=== PATIENT | female | born 1940 | race Caucasian/White ===

== ENCOUNTER 2016-12-21 12:58 | Outpatient (CLI) | payer MEDICARE, OTHER ==
--- NOTE | 2016-12-23 16:49 | Mammography Report ---
DIGITAL SCREENING MAMMOGRAM: 12/21/2016 CLINICAL INDICATION: A 76-year-old, for screening. COMPARISON: 11/2015, 11/2014, 11/2013, 11/2012, 11/2011, 11/2010, 05/2010, 10/2009, 09/2008. TECHNIQUE: Routine CC and MLO projections were obtained of the breasts. FINDINGS: The breasts demonstrate scattered fibroglandular densities bilaterally. Coarse, typically benign calcifications are present. No suspicious masses, clustered microcalcifications, or regions of architectural distortion are identified. IMPRESSION: BENIGN FINDINGS. RECOMMENDATION: ROUTINE ANNUAL SCREENING UNLESS OTHERWISE CLINICALLY INDICATED. BIRADS CATEGORY 2-BENIGN FINDINGS. STANDARD QUALIFYING STATEMENTS 1. This examination was reviewed with the aid of Computer-Aided Detection (CAD). 2. A negative or benign imaging report should not delay biopsy if clinically suspicious findings are present. Consider surgical consultation if warranted. More than 5% of cancers are not identified by i maging. 3. Dense breasts may obscure an underlying neoplasm. JOB #: [id number] EXT JOB #:[id number]
== END 2016-12-21 12:59 | disposition home or self-care (01) ==
LOC: DI 12:58
PROVIDERS: ATTEND Physician Assistant Medical
DX: Z12.31 Encounter for screening mammogram for malignant neoplasm of breast (principal)
CPT/HCPCS: 77067

== ENCOUNTER 2016-12-28 08:00 | Outpatient (CLI) | payer MEDICARE, OTHER | END 2016-12-28 08:01 | disposition home or self-care (01) | DX: R25.1 Tremor, unspecified (principal) ==

== ENCOUNTER 2017-01-27 17:38 | Emergency (ER) | payer MEDICARE, OTHER ==
[2017-01-27 18:25] LABS: BILIRUBIN,URINE NEGATIVE (NEGATIVE)
[2017-01-27 18:30] LABS: UA CHARGE (STRIP ONLY) YES; UR CULTURE IF IND NOT INDICATED
[2017-01-27 18:34] LABS: BASOPHILS % (AUTO) 0.4 %; EOSINOPHILS # (AUTO) 0.1 10^3/uL (0.0-0.7); EOSINOPHILS % (AUTO) 1.2 %; HCT - HEMATOCRIT 35.9 % (37.0-47.0); HGB - HEMOGLOBIN 12.2 g/dL (12.0-16.0); LYMPHOCYTES # (AUTO) 1.3 10^3/uL (1.5-3.5); LYMPHOCYTES % (AUTO) 13.6 %; MEAN CORPUSCULAR HEMOGLOBIN 31.5 pg (27.0-31.0); MEAN CORPUSCULAR HGB CONC 34.1 g/dL (32.0-36.0); MEAN CORPUSCULAR VOLUME 92.3 fL (81.0-99.0); MEAN PLATELET VOLUME 8.1 fL (7.9-10.8); MONOCYTES # (AUTO) 0.5 10^3/uL (0.0-1.0); MONOCYTES % (AUTO) 5.3 %; NEUTROPHILS # (AUTO) 7.4 10^3/uL (1.5-6.6); NEUTROPHILS % (AUTO) 79.5 %; RED BLOOD COUNT 3.89 10^6/uL (4.20-5.40); RED CELL DISTRIBUTION WIDTH 13.6 % (12.0-15.0); UNCORRECTED WHITE BLOOD COUNT 9.4 x10^3/uL; WHITE BLOOD COUNT 9.4 x10^3/uL (4.8-10.8)
[2017-01-27 18:42] LABS: CALCIUM 9.2 mg/dL (8.5-10.3); POTASSIUM 3.8 mmol/L (3.5-5.0)
--- NOTE | 2017-01-27 20:49 | XRAY Preliminary Report ---
Exam: XR Chest 2 View PA/LAT IMPRESSION: No acute intrathoracic plain film abnormality. [facility] SITE ID: [id number]
--- NOTE | 2017-01-27 20:52 | XRAY Report ---
EXAM: CHEST RADIOGRAPHY EXAM DATE: 01/27/2017 08:18 PM. CLINICAL HISTORY: Chills. COMPARISON: None. TECHNIQUE: 2 views. FINDINGS: Lungs/Pleura: No focal opacities evident. No pleural effusion. No pneumothorax. Normal volumes. Mediastinum: Heart size is normal. There is thoracic aortic calcification. Other: None. IMPRESSION: No acute intrathoracic plain film abnormality. [facility] Referring Provider Line: [phone] SITE ID: [id number]
[2017-01-27 22:07] VITALS: BP 146/68
--- NOTE | 2017-01-27 22:35 | ED Physician Documentation ---
History of Present Illness - Stated complaint Stated Complaint: CHILLS ALL OVER BODY ACHE - Chief complaint Chief Complaint: General - Additonal information Additional information: hx from pt fairly healthy 76 female just returned from a motorcycle trip with friends one other friend was ill with viral URI sx now this pt is ill with shaking chills myalgias fatigue generally weak no specific focal SUAREZ neck pain chest pain, mild suprapubic discomfort has psoriasis and some abrasions on her feet but no infection no actuall recorded fever feels weak all over does take leflunimide so may be slightly immuncocompromised Review of Systems Constitutional: reports: Chills, Myalgias. denies: Fever Ears: denies: Ear pain Throat: denies: Sore throat Cardiac: denies: Chest pain / pressure Respiratory: denies: Dyspnea, Cough GI: reports: Abdominal Pain (mild suprapubic). denies: Nausea, Vomiting : denies: Dysuria Musculoskeletal: denies: Neck pain, Back pain Neurologic: reports: Generalized weakness. 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 - Present Medications Home Medications: Ambulatory Orders Medication Instructions Recorded Confirmed Albuterol 1 puffs PO DAILY 01/27/17 01/27/17 Allerest 1 tab PO DAILY 01/27/17 Benazepril HCl 10 mg PO DAILY 01/27/17 01/27/17 Esomeprazole Magnesium [Nexium] 20 mg PO DAILY 01/27/17 01/27/17 Fluoxetine HCl [Prozac] 20 mg PO DAILY 01/27/17 01/27/17 Fluticasone/Salmeterol [Advair 1 puffs PO DAILY 01/27/17 01/27/17 100-50 Diskus] Leflunomide 20 mg PO DAILY 01/27/17 01/27/17 Levothyroxine Sodium [Synthroid] 75 mcg PO DAILY 01/27/17 01/27/17 Montelukast Sodium [Singulair] 10 mg PO DAILY 01/27/17 01/27/17 Zolpidem Tartrate [Ambien] 10 mg PO DAILY 01/27/17 01/27/17 buPROPion [Wellbutrin Xl] 150 mg PO DAILY 01/27/17 01/27/17 - Allergies Allergies/Adverse Reactions: Allergies Allergy/AdvReac Type Severity Reaction Status Date / Time No Known Drug Allergies Allergy Verified 01/27/17 17:55 - Social History Does the pt smoke?: No Smoking Status: Never smoker Does the pt drink ETOH?: Yes Does the pt have substance abuse?: No PD ED PE NORMAL - Vitals Vital signs reviewed: Yes (afebrile nl HR and BP) - General General: Alert and oriented X 3 - HEENT HEENT: PERRL - Neck Neck: Supple, no meningeal sign - Cardiac Cardiac: RRR - Respiratory Respiratory: No respiratory distress, Clear bilaterally - Abdomen Abdomen: Soft, Other (very mild suprapubic TTP) - Back Back: No CVA TTP, Other (no rash) - Derm Derm: Other (some psoriais and abrasion to soles of feet but no infection) - Extremities Extremities: No deformity - Neuro Neuro: Alert and oriented X 3 Results - Vitals Vitals: Vital Signs - 24 hr 01/27/17 01/27/17 01/27/17 17:53 19:07 22:04 Temperature 37.5 C 37.7 C H Heart Rate 91 85 90 Respiratory 22 22 20 Rate Blood Pressure 178/87 H 155/78 H 146/68 H O2 Saturation 96 96 95 Oxygen O2 Source Room air - Labs Labs: Laboratory Tests 01/27/17 01/27/17 01/27/17 18:10 18:15 18:15 WBC 9.4 RBC 3.89 L Hgb 12.2 Hct 35.9 L MCV 92.3 MCH 31.5 H MCHC 34.1 RDW 13.6 Plt Count 169 MPV 8.1 Neut # 7.4 H Lymph # 1.3 L [place] # 0.5 Eos # 0.1 Baso # 0.0 Absolute Nucleated RBC 0.00 Nucleated RBCs 0.0 Sodium 135 Potassium 3.8 Chloride 100 L Carbon Dioxide 25 Anion Gap 10.0 BUN 17 Creatinine 1.0 Estimated GFR (MDRD) 54 L Glucose 105 H Lactic Acid Calcium 9.2 Urine Color YELLOW Urine Clarity CLEAR Urine pH 7.0 Ur Specific [place] 1.015 Urine Protein NEGATIVE Urine Glucose (UA) NEGATIVE Urine Ketones NEGATIVE Urine Occult Blood NEGATIVE Urine Nitrite NEGATIVE Urine Bilirubin NEGATIVE Urine Urobilinogen 0.2 (NORMAL) Ur Leukocyte Esterase NEGATIVE Ur Microscopic Review NOT INDICATED Urine Culture Comments NOT INDICATED 01/27/17 18:15 WBC RBC Hgb Hct MCV MCH MCHC RDW Plt Count MPV Neut # Lymph # [place] # Eos # Baso # Absolute Nucleated RBC Nucleated RBCs Sodium Potassium Chloride Carbon Dioxide Anion Gap BUN Creatinine Estimated GFR (MDRD) Glucose Lactic Acid 1.1 Calcium Urine Color Urine Clarity Urine pH Ur Specific [place] Urine Protein Urine Glucose (UA) Urine Ketones Urine Occult Blood Urine Nitrite Urine Bilirubin Urine Urobilinogen Ur Leukocyte Esterase Ur Microscopic Review Urine Culture Comments - Rads (name of study) CXR Radiology: See rad report (NACPD) PD MEDICAL DECISION MAKING - ED course ED course: CXR neg UA neg WBC nl lactate neg non surgical abd exam explained to pt that right now no source for infection has been found - may be viral - but blood and urine cultures are pending and may be + in which case we will call her to come back for IV antibitoics but that for now if she feels able, it is OK for her to go home and wait on cx reports and take tylenol for myalgias and any fever Departure - Departure Disposition: 01 Home, Self Care Clinical Impression: Chills (without fever), Weakness Condition: Good Follow-Up: Rohit Escobar MD [Primary Care Provider] - (for a recheck tomorrow unless you are feeling completely better) Comments: I am concerned that you may have an infection But all the tests we did today so far are reassuring - your white blood cell count is not too high or too low, there lactate test for sepsis was normal, the chest xray did not show pneumonia, the urine test was normal too You may have a viral infection, in which case the treatment is just tylenol fluids and rest Or you may well have a more serious bacterial infection that could not yet be identified with the tests available. Blood and urine cultures are running and if they are positive we will call you to come back for antibiotics And if you develop new or worsening symptoms that might lead to a diagnosis not yet apparent, please see you PMD or come back to the ER
[2017-01-27] MEDS ORDERED: ACETAMINOPHEN 325 MG TABLET PO STA (22:43)
[2017-01-27] MEDS ORDERED: ACETAMINOPHEN 325 MG TABLET PO ONE (22:49)
== END 2017-01-27 22:55 | disposition home or self-care (01) ==
LOC: ED 17:38
DX: R68.83 Chills (without fever) (principal); R53.1 Weakness; L40.9 Psoriasis, unspecified; S90.819A Abrasion, unspecified foot, initial encounter; J44.9 Chronic obstructive pulmonary disease, unspecified; R10.30 Lower abdominal pain, unspecified
CPT/HCPCS: 36415; 71020; 80048; 81003; 83605; 85025; 87040; 99283; 99284; A9270; 81001; 87086

== ENCOUNTER 2019-02-20 11:33 | Emergency (ER) | payer MEDICARE, OTHER ==
[2019-02-20 11:45] VITALS: BP 180/69
--- NOTE | 2019-02-20 12:36 | ED Physician Documentation ---
PD HPI SKIN - Stated complaint Stated Complaint: RT F.ARM LAC - Chief complaint Chief Complaint: Wound - History obtained from History obtained from: Patient, Friend - History of Present Illness Timing - onset: How many days ago (4) Timing - duration: Days (4) Pain level max: 0 Pain level now: 0 Quality / character: No: Draining Associated symptoms: No: Fever - Additional information Additional information: 78-year-old female presents to the emergency department with a right forearm abrasion from 4 days ago. She states it was a skin avulsion. She wants the wound checked as she is concerned that it may become infected. Nothing makes it better or worse. no fevers. no chills. 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 HEENT: Other - Present Medications Home Medications: Ambulatory Orders Medication Instructions Recorded Confirmed Albuterol 1 puffs PO DAILY 01/27/17 01/27/17 Allerest 1 tab PO DAILY 01/27/17 Benazepril HCl 10 mg PO DAILY 01/27/17 01/27/17 Esomeprazole Magnesium [Nexium] 20 mg PO DAILY 01/27/17 01/27/17 Fluoxetine HCl [Prozac] 20 mg PO DAILY 01/27/17 01/27/17 Fluticasone/Salmeterol [Advair 1 puffs PO DAILY 01/27/17 01/27/17 100-50 Diskus] Leflunomide 20 mg PO DAILY 01/27/17 01/27/17 Levothyroxine Sodium [Synthroid] 75 mcg PO DAILY 01/27/17 01/27/17 Montelukast Sodium [Singulair] 10 mg PO DAILY 01/27/17 01/27/17 Zolpidem Tartrate [Ambien] 10 mg PO DAILY 01/27/17 01/27/17 buPROPion [Wellbutrin Xl] 150 mg PO DAILY 01/27/17 01/27/17 Bacitracin Zinc Oint 1 applic TOP BID #1 tube 02/20/19 - Allergies Allergies/Adverse Reactions: Allergies Allergy/AdvReac Type Severity Reaction Status Date / Time No Known Drug Allergies Allergy Verified 01/27/17 17:55 - Social History Does the pt smoke?: No Smoking Status: Never smoker Does the pt drink ETOH?: Yes Does the pt have substance abuse?: No - Immunizations Immunizations are current?: Yes - POLST Patient has POLST: No PD ED PE NORMAL - Vitals Vital signs reviewed: Yes - General General: Alert and oriented X 3, No acute distress - HEENT HEENT: Moist mucous membranes - Derm Derm: Warm and dry - Extremities Extremities: Other (R forearm - 3cm, linear. no signs of infection. scabbed over. ) - Neuro Neuro: Alert and oriented X 3 Results - Vitals Vitals: Vital Signs - 24 hr 02/20/19 11:44 Temperature 36.5 C Heart Rate 63 Respiratory 20 Rate Blood Pressure 180/69 H O2 Saturation 99 Oxygen O2 Source Room air PD MEDICAL DECISION MAKING - ED course Complexity details: considered differential, d/w patient ED course: Patient with an abrasion of the right forearm with no signs of infection. Will prescribe bacitracin ointment for home. Warnings of infection and instructions on wound care given at bedside. Also counseled on how to minimize scarring. Patient counseled regarding signs and symptoms for which I believe and urgent re-evaluation would be necessary. Patient with good understanding of and agreement to plan and is comfortable going home at this time This document was made in part using voice recognition software. While efforts are made to proofread this document, sound alike and grammatical errors may occur. Departure - Departure Disposition: 01 Home, Self Care Clinical Impression: Abrasion Condition: Good Instructions: ED Abrasion Follow-Up: your,doctor in 1 week for a repeat wound check [Other] Prescriptions: Bacitracin Zinc Oint 1 applic TOP BID #1 tube Comments: Return if you worsen. Return if you notice redness, swelling or drainage from the wound. You can apply the antibiotic ointment as needed. Discharge Date/Time: 02/20/19 12:38
== END 2019-02-20 12:38 | disposition home or self-care (01) ==
LOC: ED 11:33
DX: S50.811A Abrasion of right forearm, initial encounter (principal); W26.8XXA Contact with other sharp object(s), not elsewhere classified, initial encounter
CPT/HCPCS: 99282; 99283